=== PATIENT | male | born 1955 | race African-American/Black ===

== ENCOUNTER 2018-09-20 21:32 | Emergency (ER) | payer OTHER ==
[~2018-09-20] VITALS: Ht 182.9 cm; Wt 97.5 kg
[2018-09-20 21:32] VITALS: BP 126/82
--- NOTE | 2018-09-20 21:32 | NUR ---
ED Nurse Note: Pt was BIBA from street, c/o ETOH and fell on his left hip. Pt is awake with drawsy. c/o left hip pain 7/10. Skin intact. Vital signs stable at this time, waiting for orders.
--- NOTE | 2018-09-20 21:49 | NUR ---
ED Nurse Note: X-ray done at bed side.
--- NOTE | 2018-09-21 01:40 | NUR ---
HAND-OFF: Report given to Buck Fox/RN for continue care. Pt is A/O X 4. VSS.
[2018-09-21 01:50] VITALS: BP 124/83
[2018-09-21] MEDS ORDERED: IBUPROFEN600 MG ORAL (01:52)
--- NOTE | 2018-09-21 01:52 | Emergency Room Report ---
History of Present Illness General Chief Complaint: Multiple Trauma/Fall Source: Patient, Medical Record Present Illness HPI This is a 63-year-old male with history of chronic hip pain. He presents with chief complaint of fall and hip pain. He said he was walking out of the pharmacy and fell and complained of hip pain. Can get up. He was told that he needed a hip replacement. Denies any fever chills but denies any nausea or vomiting. Nothing made it better. Movement made it worse. Pain is 9 out of 10. Allergies: Coded Allergies: No Known Allergies (Verified , 02/03/11) Patient History Past Medical History: see triage record, old chart reviewed Past Surgical History: other Pertinent Family History: none Social History: Denies: smoking Immunizations: other Reviewed Nursing Documentation: PMH: Agreed; PSxH: Agreed Nursing Documentation-PMH Hx Hypertension: Yes Hx Neurological Problems: Yes - sciatica, Review of Systems Eye: Denies: eye pain, blurred vision ENT: Denies: ear pain, nose congestion, throat swelling Respiratory: Denies: cough, shortness of breath Cardiovascular: Denies: chest pain, palpitations Gastrointestinal: Denies: abdominal pain, diarrhea, nausea, vomiting Musculoskeletal: Reports: joint pain; Denies: back pain Skin: Denies: rash Neurological: Denies: headache, numbness Endocrine: Denies: increased thirst, increased urine Hematologic/Lymphatic: Denies: easy bruising All Other Systems: negative except mentioned in HPI Physical Exam Vital Signs Date Time Temp Pulse Resp B/P (MAP) Pulse Ox O2 Delivery O2 Flow Rate FiO2 09/20/18 21:30 98.8 85 18 127/81 (96) 95 Room Air Vitals normal Sp02 EP Interpretation: reviewed, normal General Appearance: well appearing, no apparent distress, alert, other - Intoxicated Head: normocephalic, atraumatic Eyes: bilateral eye PERRL, bilateral eye EOMI ENT: hearing grossly normal, normal pharynx Neck: full range of motion, supple, no meningismus Respiratory: chest non-tender, lungs clear, normal breath sounds Cardiovascular #1: regular rate, rhythm, no murmur Gastrointestinal: normal bowel sounds, non tender, no mass, no organomegaly, no bruit, non-distended Musculoskeletal: back normal, normal range of motion, tender - left hip Psychiatric: mood/affect normal Skin: warm/dry Medical Decision Making Diagnostic Impression: Primary Impression: Contusion of left hip, initial encounter Additional Impression: Alcohol intoxication Qualified Codes: F10.920 - Alcohol use, unspecified with intoxication, uncomplicated ER Course Patient presents with a fall and left hip pain. X-rays negative for fracture. He said he had four 24 ounce beers tonight. Slept for several hours and now able to walk to the bathroom without any problem. I gave him a cane. Will discharge home. Other X-Ray Diagnostic Results Other X-Ray Diagnostic Results : X-Ray ordered: X-ray left hip # of Views/Limited Vs Complete: 3 View Indication: Pain EP Interpretation: Yes Interpretation: no dislocation, no soft tissue swelling, no fractures Impression: No acute disease Electronically Signed by: Андрей Iraheta MD Last Vital Signs Date Time Temp Pulse Resp B/P (MAP) Pulse Ox O2 Delivery O2 Flow Rate FiO2 09/20/18 21:32 86 18 Room Air 09/20/18 21:32 98.5 126/82 95 Status: improved Disposition: HOME, SELF-CARE Condition: Stable Scripts Ibuprofen* (MOTRIN*) 600 Mg Tablet 600 MG ORAL THREE TIMES A DAY, #30 TAB 0 Refills Prov: Андрей Iraheta MD 09/21/18 Referrals: [facility] (PCP) Additional Instructions: ABstain from drinking. Follow-up with your doctor in 7 days. Return if worse. Андрей Iraheta MD Sep 21, 2018 01:52
--- NOTE | 2018-09-21 02:12 | NUR ---
ED Nurse Note: Received report from Buck Fox/RN. Pt was d/c'd at 0150.
--- NOTE | 2018-09-21 02:13 | NUR ---
ER DISCHARGE NOTE: Patient is cleared to be discharged per Dr. Iraheta at 01:50. X-ray done, no fracture was found. Pt is aox4 on room air with stable vital signs. Pt was given dc and prescription instructions and was able to verbalize understanding. Pt's ID band removed. Pt is able to ambulate with steady gait and took all belongings.
--- NOTE | 2018-09-21 12:35 | Diagnostic Imaging Report ---
Indications: Left hip pain Findings: Two views of the left hip were obtained. There is no acute fracture or malalignment identified. There is narrowing of the left hip joint which shadow consistent with a mild arthrosis. Within the shaft of the proximal left femur there is an unusual cortical protuberance which may be an osteochondroma. This is not evaluated well on the current study. IMPRESSION: No acute injury identified. Mild arthrosis of the left hip. Suspected osteochondroma in the left femoral shaft not evaluated well on the current study
== END 2018-09-21 01:50 | disposition home or self-care (01) ==
LOC: EDBD 21:32 → EMR 21:44
DX: S70.02XA Contusion of left hip, initial encounter (principal); F10.920 Alcohol use, unspecified with intoxication, uncomplicated; W19.XXXA Unspecified fall, initial encounter; Y92.9 Unspecified place or not applicable; I10 Essential (primary) hypertension
CPT/HCPCS: 73502; 99283

== ENCOUNTER 2018-09-22 05:06 | Emergency (ER) | payer OTHER ==
[~2018-09-22] VITALS: Ht 188 cm; Wt 99.8 kg
[~2018-09-22 05:06] MED LIST: IBUPROFEN600 MG ORAL
--- NOTE | 2018-09-22 05:16 | NUR ---
ED Nurse Note: BIBA 826 D/T TRIP AND FALL ON [employer] AND [address]. PT HAS LACERATION ON FOREHEAD.
--- NOTE | 2018-09-22 05:21 | Emergency Room Report ---
History of Present Illness General Chief Complaint: Multiple Trauma/Fall Source: Patient, Medical Record (Андрей Iraheta MD) Present Illness HPI This is a 63-year-old male with psychiatric history and alcohol abuse. Also history of chronic left hip pain. He presents with chief complaint of head injury. Bystander called 911 because patient was found on the ground. He tripped and fell with a head injury. He is intoxicated. Unknown loss of consciousness. Patient complained of generalized body pain. No other injury. (Андрей Iraheta MD) Allergies: Coded Allergies: No Known Allergies (Verified , 02/03/11) Patient History Past Medical History: see triage record, old chart reviewed, HTN, psych hx Past Surgical History: other Pertinent Family History: none Social History: Denies: smoking Immunizations: other Reviewed Nursing Documentation: PMH: Agreed; PSxH: Agreed (Андрей Iraheta MD) Nursing Documentation-PMH Past Medical History: No History, Except For Hx Hypertension: Yes History Of Psychiatric Problem: Yes - MDD, SCHIZOPHRENIA Hx Neurological Problems: Yes - sciatica, Hx Seizures: Yes (Андрей Iraheta MD) Review of Systems All Other Systems: limited - secondary to intoxication (Андрей Iraheta MD) Physical Exam Vital Signs Date Time Temp Pulse Resp B/P (MAP) Pulse Ox O2 Delivery O2 Flow Rate FiO2 09/22/18 05:00 97.7 86 16 114/70 (85) 96 Room Air Vitals normal Sp02 EP Interpretation: reviewed, normal General Appearance: well appearing, no apparent distress, other - Intoxicated, slurring his speech Head: normocephalic, other - Abrasion to forehead Eyes: bilateral eye PERRL, bilateral eye EOMI ENT: hearing grossly normal, normal pharynx Neck: full range of motion, supple, no meningismus Respiratory: chest non-tender, lungs clear, normal breath sounds Cardiovascular #1: regular rate, rhythm, no murmur Gastrointestinal: normal bowel sounds, non tender, no mass, no organomegaly, no bruit, non-distended Musculoskeletal: back normal, gait/station normal, normal range of motion Psychiatric: mood/affect normal Skin: warm/dry (Андрей Iraheta MD) Medical Decision Making Diagnostic Impression: Primary Impression: Head injury, acute Qualified Codes: S09.90XA - Unspecified injury of head, initial encounter Additional Impression: Alcohol intoxication Qualified Codes: F10.920 - Alcohol use, unspecified with intoxication, uncomplicated ER Course Patient presents with head injury. Probably secondary to his alcohol intoxication. CT scan unremarkable based on my reading. No evidence of any bleeding. Will observe until clinical sobriety. (Андрей Iraheta MD) ER Course Please note that in the morning time patient has awakened and initially wanted to leave AGAINST MEDICAL ADVICE Patient is medically and clinically sober ambulatory GCS 15 Patient was anticipated to be disposition home once sober and therefore continued with the same plan blood work baseline levels (Kiarra Rothman DO) CT/MRI/US Diagnostic Results CT/MRI/US Diagnostic Results : Imaging Test Ordered: CT Head Impression Read by radiologist (Андрей Iraheta MD) Last Vital Signs Date Time Temp Pulse Resp B/P (MAP) Pulse Ox O2 Delivery O2 Flow Rate FiO2 09/22/18 05:00 97.7 86 16 114/70 (85) 96 Room Air Status: improved (Андрей Iraheta MD) Disposition: HOME, SELF-CARE Condition: Stable Additional Instructions: Abstain from alcohol. Follow-up with your doctor in 7 days. Return if worse. Андрей Iraheta MD Sep 22, 2018 05:21 Kiarra Rothman DO Sep 22, 2018 07:06
--- NOTE | 2018-09-22 05:30 | NUR ---
ED Nurse Note: PATIENT DOWN TO IMAGING.
[2018-09-22 05:33] VITALS: BP 114/70
--- NOTE | 2018-09-22 05:42 | NUR ---
ED Nurse Note: PATIENT BACK FROM IMAGING. AO2 NAD VSS.
--- NOTE | 2018-09-22 06:30 | NUR ---
ED Nurse Note: IV ACCESS ESTABLISHED. BLOOD COLLECTED; SENT DOWN TO LAB.
[2018-09-22 06:48] VITALS: BP 114/64
[2018-09-22 06:54] LABS: BASOPHILS % (AUTO) 1.6 % (0.0-2.0); EOSINOPHILS % (AUTO) 5.5 % (0.0-3.0); HEMATOCRIT 34.4 % (42.0-52.0); HEMOGLOBIN 11.1 G/DL (14.2-18.0); LYMPHOCYTES % (AUTO) 54.8 % (20.0-45.0); MEAN CORPUSCULAR VOLUME 90 FL (80-99); MONOCYTES % (AUTO) 7.7 % (1.0-10.0); NEUTROPHILS % (AUTO) 30.4 % (45.0-75.0); PLATELET COUNT 247 K/UL (150-450); RED BLOOD COUNT 3.84 M/UL (4.70-6.10); RED CELL DISTRIBUTION WIDTH 19.3 % (11.6-14.8); WHITE BLOOD COUNT 5.9 K/UL (4.8-10.8)
[2018-09-22 06:59] LABS: ANION GAP 10 mmol/L (5-15); BLOOD UREA NITROGEN 21 mg/dL (7-18); CARBON DIOXIDE 26 MMOL/L (21-32); CHLORIDE 112 MMOL/L (98-107); CREATININE 0.9 MG/DL (0.55-1.30); POTASSIUM 3.7 MMOL/L (3.5-5.1); SODIUM 147 MMOL/L (136-145)
[2018-09-22 07:10] VITALS: BP 114/64
--- NOTE | 2018-09-22 07:10 | NUR ---
AMA: SEE AMA FORM. REMOVED IV WITHOUT COMPLICATIONS. ARM BAND REMOVED.
--- NOTE | 2018-09-22 10:36 | Diagnostic Imaging Report ---
Indication: Headache and trauma Technique: Contiguous 5 mm thick transaxial imaging of the head obtained in a Siemens Sensation [address] scanner. Soft tissue and bone windows generated. Automatic Exposure Control was utilized. Total Dose length Product (DLP): 1397.[address] Dose Index Volume (CTDIvol): 70.38 mGy Comparison: none Findings: There is mild prominence of the ventricles, basal cisterns, and cerebral sulci consistent with atrophy. Mild, nonspecific, white matter hypoattenuation is noted throughout the brain consistent with chronic small vessel disease. There is no midline shift, edema, acute hemorrhage, mass effect, or abnormal extra-axial fluid collections. Bones are unremarkable. Impression: No acute intracranial bleed, mass effect or edema. Mild atrophy of the brain. Nonspecific white matter hypoattenuation probably due to chronic small vessel disease. [facility] has communicated the preliminary results to the Emergency Department. Their findings are largely concordant with this report. The CT scanner at [facility] [place] is accredited by the [employer] and the scans are performed using dose optimization techniques as appropriate to a performed exam including Automatic Exposure control.
== END 2018-09-22 07:10 | disposition home or self-care (01) ==
LOC: EDBD 05:06 → EMR 05:29
DX: S09.90XA Unspecified injury of head, initial encounter (principal); F10.920 Alcohol use, unspecified with intoxication, uncomplicated; G89.29 Other chronic pain; W19.XXXA Unspecified fall, initial encounter; Y92.9 Unspecified place or not applicable; I10 Essential (primary) hypertension; F20.9 Schizophrenia, unspecified; F32.9 Major depressive disorder, single episode, unspecified; G40.909 Epilepsy, unspecified, not intractable, without status epilepticus
CPT/HCPCS: 36415; 70450; 80048; 80329; 85025; 96360; 99284

== ENCOUNTER 2019-01-30 00:01 | Emergency (ER) | payer OTHER ==
[~2019-01-30] VITALS: Ht 177.8 cm; Wt 86.2 kg
--- NOTE | 2019-01-30 00:01 | NUR ---
ED Nurse Note: Pt brought in by ambulance 826 c/o RLQ pain since today. Pt stated hx of pancretitis and has been drinkning since 4 hrs ago. Pt stated 8/10 pain. Denies n/v/d. Pt slurs his words
[2019-01-30 00:09] VITALS: BP 115/70
--- NOTE | 2019-01-30 00:15 | NUR ---
ED Nurse Note: ermd at bedside. no new orders at this time. patient restless and slurring words; rambling speech. provided patient with warm blankets and repositioned for comfort. decreased environmental stimuli; dimmed lights. patient calm and resting in bed. will continue to monitor.
--- NOTE | 2019-01-30 00:21 | NUR ---
ED Nurse Note: patient denies any pain at this moment. relaxing in bed with no acute signs of distress. states he wants to sleep for a little.
--- NOTE | 2019-01-30 01:00 | NUR ---
ED Nurse Note: patient sleeping in bed with no acute distress. respirations even and unlabored. vitals stable. will continue to monitor.
[2019-01-30 01:03] VITALS: BP 112/68
--- NOTE | 2019-01-30 02:00 | Emergency Room Report ---
History of Present Illness General Chief Complaint: Abdominal Pain Source: Patient, Medical Record, EMS Present Illness HPI Is a 63-year-old male brought in by EMS with chief complaint abdominal pain. Patient has history of alcohol abuse and also a psych history. On previous visit he has positive for methamphetamine. He told paramedics that he has pancreatitis is flaring up. He has been drinking tonight. To me he denies any abdominal pain. His main concern is that his left groin is bleeding. He said it occur every 2 to 4 weeks. He said his bleeding out and there is pus coming out of it. Also said that he is dying. He said that he has cancer. He does not know what kind. He does not know who diagnosed him. Denies any other complaint. No nausea no vomiting. No fever chills. Allergies: Coded Allergies: No Known Allergies (Verified , 02/03/11) Patient History Past Medical History: see triage record, old chart reviewed, psych hx Past Surgical History: other Pertinent Family History: none Social History: Reports: alcohol use Immunizations: other Reviewed Nursing Documentation: PMH: Agreed; PSxH: Agreed Nursing Documentation-PMH Past Medical History: No History, Except For Hx Hypertension: Yes Hx Neurological Problems: Yes - sciatica, Hx Seizures: Yes Review of Systems Eye: Denies: eye pain, blurred vision ENT: Denies: ear pain, nose congestion, throat swelling Respiratory: Denies: cough, shortness of breath Cardiovascular: Denies: chest pain, palpitations Gastrointestinal: Denies: abdominal pain, diarrhea, nausea, vomiting Musculoskeletal: Denies: back pain, joint pain Skin: Denies: rash Neurological: Denies: headache, numbness Endocrine: Denies: increased thirst, increased urine Hematologic/Lymphatic: Denies: easy bruising All Other Systems: negative except mentioned in HPI Physical Exam Vital Signs Date Time Temp Pulse Resp B/P (MAP) Pulse Ox O2 Delivery O2 Flow Rate FiO2 01/29/19 23:57 98.2 88 16 115/70 (85) 98 Room Air Vitals normal Sp02 EP Interpretation: reviewed, normal General Appearance: well appearing, no apparent distress, alert, other - Strong smell of alcoholic beverage on breath Head: normocephalic, atraumatic Eyes: bilateral eye PERRL, bilateral eye EOMI ENT: hearing grossly normal, normal pharynx Neck: full range of motion, supple, no meningismus Respiratory: chest non-tender, lungs clear, normal breath sounds Cardiovascular #1: regular rate, rhythm, no murmur Gastrointestinal: normal bowel sounds, non tender, no mass, no organomegaly, no bruit, non-distended Musculoskeletal: back normal, gait/station normal, normal range of motion Psychiatric: mood/affect normal Medical Decision Making Diagnostic Impression: Primary Impression: Alcohol intoxication Qualified Codes: F10.920 - Alcohol use, unspecified with intoxication, uncomplicated Additional Impressions: Psychosis Qualified Codes: F23 - Brief psychotic disorder Substance abuse ER Course This patient presents with acute alcohol intoxication. He has no pain when I examined him. He told nurse that he is no longer have any pain. I see no evidence of any pancreatitis. His groin is clean. There is no bleeding. No abscess. I suspect that he has psychosis and delusions secondary to drugs and alcohol. He promptly fall asleep here. Will discharge home once he is clinically sober. Last Vital Signs Date Time Temp Pulse Resp B/P (MAP) Pulse Ox O2 Delivery O2 Flow Rate FiO2 01/30/19 00:09 88 16 Room Air 01/30/19 00:09 98.2 115/70 98 Status: improved Disposition: HOME, SELF-CARE Condition: Stable Scripts No Active Prescriptions or Reported Meds Referrals: [facility] (PCP) Additional Instructions: Stop using alcohol and drugs. Follow-up with your doctor in 7 days. Go to rehab. Return if worse. Андрей Iraheta MD Jan 30, 2019 01:00
[2019-01-30 03:24] VITALS: BP 114/68
--- NOTE | 2019-01-30 03:24 | NUR ---
ED Nurse Note: assisted patient with urinal. patient ao4 nad vss. patient back asleep in bed with no acute distress. repositioned for comfort. provided patient with pillow. will continue to monitor.
--- NOTE | 2019-01-30 04:15 | NUR ---
ED Nurse Note: provided patient with nourishment. patient eating at bedside. patient remains pain free; denies medical complaint. patient states ' i want to rest a little more before i go home." calm cooperative follows commands.
--- NOTE | 2019-01-30 04:55 | NUR ---
Up and walking, wants to leave, unsteady on his feet,security desk notified.
--- NOTE | 2019-01-30 05:00 | NUR ---
ED Nurse Note: patient changed from gown into own clothes. states "i want to go home". remains unsteady gait.
[2019-01-30] MEDS ORDERED: Haloperidol 5mg/ml Inj ONE (05:18)
--- NOTE | 2019-01-30 05:18 | NUR ---
After speaking with patient agreed to stay and sleep for an hour before leaving.
--- NOTE | 2019-01-30 05:19 | NUR ---
Securyty guard at bedside.
--- NOTE | 2019-01-30 05:27 | NUR ---
ED Nurse Note: patient back in bed. refusing to wear gown. no acute distress. states 'i will stay a little longer before i go home"
[2019-01-30] MEDS ORDERED: Haloperidol 5mg/ml Inj IM ONE (05:30)
--- NOTE | 2019-01-30 05:30 | NUR ---
ED Nurse Note: refuses to be on monitor. refuses vitals.
--- NOTE | 2019-01-30 05:51 | NUR ---
ED Nurse Note: provided patient with blankets and nourishment. ao3 with episodes of confusion. decreased environmental stimuli; dimmed lights and limit noises. silver chaser at bedside
--- NOTE | 2019-01-30 07:00 | NUR ---
ED Nurse Note: report given to abundio grigsby. patient sleeping in bed with no acute distress. patient still refuses to dress in gown and to be attached to monitor. respirations even and unlabored. endorsed plan of care.
--- NOTE | 2019-01-30 07:15 | NUR ---
ED Nurse Note: Received patient from Buck Fox RN. patient at no distress at this time, patient states that he just wants to sleep
[2019-01-30 07:28] VITALS: BP 118/67
--- NOTE | 2019-01-30 07:28 | NUR ---
ER DISCHARGE NOTE: Patient is cleared to be discharged per ERMD, pt is aox4, on room air, with stable vital signs. pt was given dc nstructions, pt was able to verbalize understanding, pt id band removed without complications. pt is able to ambulate with steady gait. pt took all belongings.
== END 2019-01-30 07:29 | disposition home or self-care (01) ==
LOC: EDBD 00:01 → EMR 00:38
DX: F10.920 Alcohol use, unspecified with intoxication, uncomplicated (principal); F23 Brief psychotic disorder; F19.10 Other psychoactive substance abuse, uncomplicated
CPT/HCPCS: 96372; J1630; Z7502; 99283